=== PATIENT | male | born 1970 | race Caucasian/White ===

== ENCOUNTER 2022-06-14 23:28 | Emergency (ER) | payer SELFPAY ==
[2022-06-15 00:08] VITALS: BP 118/91; PULSE 92; RESP 18; BMI 30.1
--- NOTE | 2022-06-15 00:22 | ED_ITS ---
HPI - Male Genitourinary General Chief complaint: Urogenital-Male Stated complaint: Urinary problem Time Seen by Provider: 06/15/22 00:17 Source: patient Mode of arrival: ambulatory Limitations: no limitations History of Present Illness HPI Narrative: Patient comes to the emergency room complaining of severe suprapubic pain, states that he had a lot of Gatorade to drink earlier today and now he is unable to urinate. Patient states is that this happens. Prior to this, patient denies any URI UTI symptoms or abdominal pain. Patient states that the last time that he was able to urinate was approximately 4 hours ago, since then he has been drinking plenty of fluids. Related Data Previous Rx's Medication Instructions Recorded tamsulosin 0.4 mg capsule 0.4 mg PO DAILY #10 caps 06/15/22 Allergies Allergy/AdvReac Type Severity Reaction Status Date / Time sulfamethoxazole Allergy Unknown UNKNOWN Verified 06/15/22 00:07 [From BACTRIM] trimethoprim [From BACTRIM] Allergy Unknown UNKNOWN Verified 06/15/22 00:07 Review of Systems Review of Systems: Constitutional : No Weight loss, No Fever, No Chills, No Night Sweats, No Fatigue, No Malaise ENT/Mouth : No Hearing loss, No Ear Pain, No Nasal Congestion, No Sinus Pain, No Hoarseness, No sore throat, No Rhinorrhea, No Swallowing Difficulty Eyes: No Eye Pain, No Swelling, No Redness, No Foreign Body, No Discharge, No Vision Changes Cardiovascular : No Chest Pain, No SOB, No Dyspnea on Exertion, No Orthopnea, No Edema, No Palpitations Respiratory : No Cough, No Sputum, No Wheezing, No Smoke Exposure, No Dyspnea Gastrointestinal : No Nausea, No Vomiting, No Diarrhea, No Constipation, No abdominal Pain, No Hematochezia, No Melena Genitourinary : no irregular bleeding, No Dysuria, No Urinary Frequency, No Hematuria, Complaining of urinary retention, No Urgency, No Flank Pain, No Urinary Flow Changes, No Hesitancy Musculoskeletal : No joint pain, No Myalgias, No Joint Swelling Skin : No Skin Lesions, No rash Neuro : No Weakness, No Numbness, No Paresthesias, No Loss of Consciousness, No Dizziness, No Headache Psych : No Anxiety/Panic, No Depression, No SI/HI/AH/VH, No Social Issues, Heme/Lymph: No Bruising, No Bleeding,No Lymphadenopathy Endocrine : No Polyuria, No Polydipsia, No Temperature Intolerance [facility] Social History Social History Alcohol intake: never Smoked in Last 30 Days: No Use of substances other than those prescribed or required for medical reasons: No Advance Directives: No Physical Exam Vital Signs: Vital Signs: Last Vital Signs Pulse 81 06/15/22 00:59 Resp 16 06/15/22 00:59 BP 147/95 H 06/15/22 00:59 Pulse Ox 99 06/15/22 00:59 O2 Del Method 06/15/22 00:59 BMI result Body Mass Index 30.1 Const: Other: Appearance: Alert. Oriented X3. No acute distress. Eyes: Pupils equal, round and reactive to light. ENT: Pharynx normal. Neck: Normal inspection. Neck supple. No lymph nodes noted. No crepitus CVS: Normal heart rate and rhythm. Pulses normal. Normal S1 and S2 Respiratory: No respiratory distress. Breath sounds normal. No Wheezing. No rales Abdomen: Soft , suprapubic distention and pain to palpation. Bladder scan shows greater than 600 cc of urine Skin: Skin warm and dry. Normal skin color. Normal skin turgor. Extremities: No lower extremity edema. No Lacerations. No Rash Neuro: Oriented X 3. No motor deficit. No sensory deficit. Moving all extremities. No slurred speech. CN 2 through 12 grossly intact Psych: calm, cooperative, normal affect Course Course Course Narrative: -patient's bladder scan shows greater than 600 cc of urine. -patient agrees to a Lorenz catheter -urinalysis pending Medical Decision Making Medical Decision Making [facility] Narrative: -Lorenz catheter was inserted -urinalysis negative for UTI -patient concerned he has no insurance to follow up with Urology, patient instructed to return to the emergency room in 48 hours for Lorenz catheter removal. Differential Diagnosis Differential Diagnoses: The differential diagnosis associated with the presentation includes (Urinary retention, UTI, BPH) Lab Data MDM Lab Attestation statement: I reviewed the patient's lab results. Labs: Lab Results 06/15/22 06/15/22 Range/Units 01:00 01:00 Urine Color Yellow Urine Appearance Clear Urine pH 5.5 (5.0-9.0) Ur Specific [place] <= 1.005 (1.005-1.025) Urine Protein Trace (Neg-Trace) mg/dL Urine Glucose (UA) Negative (Negative) mg/dL Urine Ketones Negative (Negative) mg/dL Urine Blood Large (3+) H (Negative) Urine Nitrite Negative (Negative) Ur Leukocyte Esterase Negative (Negative) Urine RBC 11-20 H (0-2) /HPF Urine WBC 0-5 (0-5) /HPF Ur Squamous Epith Cells 0-2 (0-2) /HPF Urine Bacteria None Seen (None Seen) Hyaline Casts 0-2 (0-2) /LPF Urine Opiates Screen Not Detected (Not Detect) Urine Fentanyl Screen Not Detected (Not Detect) Ur Barbiturates Screen Not Detected (Not Detect) Ur Phencyclidine Scrn Not Detected (Not Detect) Ur Amphetamines Screen Not Detected (Not Detect) U Benzodiazepines Scrn Not Detected (Not Detect) Urine Cocaine Screen Not Detected (Not Detect) U Marijuana (THC) Screen POSITIVE H (Not Detect) Discharge Plan Discharge Clinical Impression: Acute retention of urine Patient Disposition: Home, Self-Care Instructions: Urinary Retention in Men (ED), Lorenz Catheter Placement and Care (ED) Additional Instructions: Please return in 48 hours to have the Lorenz catheter removed. Please follow-up with your primary care physician tomorrow. If you have any worsening or new s ymptoms, please return to the emergency room or call 911 Prescriptions: New tamsulosin 0.4 mg capsule 0.4 mg PO DAILY Qty: 10 0RF
[2022-06-15 00:59] VITALS: BP 147/95; PULSE 81; RESP 16; O2SAT 99
[2022-06-15 01:06] LABS: Appearance Urine Clear; Color Urine Yellow; Glucose Urine UA Negative (Negative); Leukocyte Esterase Urine Negative (Negative); Nitrite Urine Negative (Negative); PH 5.5 (5.0-9.0); Specific Gravity - Urine <= 1.005 (1.005-1.025); UMIC TRIGGER UACC YES; Urine Blood Large (3+) (Negative); Urine Ketones Negative (Negative); Urine Protein Trace mg/dL (Neg-Trace)
[2022-06-15 01:09] LABS: Bacteria Urine None Seen (None Seen); Hyaline Casts Urine 0-2 /LPF (0-2); Squamous Epithelial Cell Urine 0-2 /HPF (0-2); WBC Urine 0-5 /HPF (0-5)
[2022-06-15 01:17] LABS: Amphetamine Screen Urine Not Detected (Not Detect); Barbiturates, Urine Not Detected (Not Detect); Benzodiazepines Screen Urine Not Detected (Not Detect); Cannabinoid Screen Urine POSITIVE (Not Detect); Cocaine Screen Urine Not Detected (Not Detect); Fentanyl, urine Not Detected (Not Detect); Opiate Screen Urine Not Detected (Not Detect); Phencyclidine Screen Urine Not Detected (Not Detect)
--- NOTE | 2022-06-15 01:51 | PC.NURSE ---
Lorenz catheter inserted with 600mL initial output. Pt reported major relief after insertion. Pt was attached to a leg bag prior to discharge and educated on Lorenz care. Pt was discharged with no questions or comments. Pt had steady gait, A&Ox4, GCS 15.
== END 2022-06-15 01:45 | disposition home or self-care (01) ==
PROVIDERS: Emergency Provider Emergency Medicine
DX: R33.9 Retention of urine, unspecified (principal); F12.90 Cannabis use, unspecified, uncomplicated
CPT/HCPCS: 51702; 80307; 81001; 99284; 99285

== ENCOUNTER 2022-06-17 00:54 | Emergency (ER) | payer SELFPAY ==
[2022-06-17 01:17] VITALS: BP 167/96; PULSE 68; RESP 18; TEMP 36.6; O2SAT 95; BMI 30.1
--- NOTE | 2022-06-17 05:50 | ED_ITS ---
HPI - Male Genitourinary General Chief complaint: Urogenital-Male Stated complaint: FARR CATH REMOVED Time Seen by Provider: 06/17/22 05:30 Source: patient Mode of arrival: ambulatory Limitations: no limitations History of Present Illness HPI Narrative: 52-year-old male presents with request have Farr catheter removed. He was seen on June 15. He had an acute obstruction. Since then he has had some small a mount of clots which have dissipated. He has had no significant pain or discomfort. No fevers or chills. He still has some pinkish urine discoloration. Related Data Previous Rx's Medication Instructions Recorded tamsulosin 0.4 mg capsule 0.4 mg PO DAILY #10 caps 06/15/22 Allergies Allergy/AdvReac Type Severity Reaction Status Date / Time No Known Allergies Allergy Verified 06/17/22 05:50 [facility] Social History Social History Alcohol intake: never Advance Directives: No Advance Directives Information Provided: Yes Physical Exam Vital Signs: Vital Signs: Last Vital Signs Temp 97.8 F 06/17/22 01:17 Pulse 68 06/17/22 01:17 Resp 18 06/17/22 01:17 BP 167/96 H 06/17/22 01:17 Pulse Ox 95 06/17/22 01:17 O2 Del Method Room Air 06/17/22 01:17 BMI result Body Mass Index 30.1 GEN: Well developed, no acute distress, alert, oriented HEENT: Normocephalic, atraumatic, normal external ears, nose appears normal Eyes: Normal to appearance Neck: Supple, no lymphadenopathy Respiratory: Talks in complete sentences, no respiratory distress Extremities: No clubbing cyanosis or edema Neurologic: No focal neurologic deficits, cranial nerves 2-12 intact, gait normal Skin: No rash : Farr catheter in place Course Course Course Narrative: 52-year-old male presents for Farr catheter removal. Currently on Flomax. Denies any infectious symptoms. Remove the Farr catheter. He is aware of reasons to return to the emergency department such as fever, chills, inability urinate, abdominal pain. Aware he should drink plenty of fluids to make sure his fleshy urine of his bladder appropriately. He will continue Flomax. Medical Decision Making Medical Decision Making [facility] Narrative: Patient is here for Farr catheter removal. Reviewed all lab tests from previous visit. Differential Diagnosis Differential Diagnoses: The differential diagnosis associated with the presenta tion includes (Farr catheter removal) External Record Review External record reviewed: Prior outpatient labs Prescription Management I considered prescription management with: Antibiotic Discharge Plan Discharge Clinical Impression: Encounter for Farr catheter removal Patient Disposition: Home, Self-Care Instructions: Farr Catheter Removal (DC) Additional Instructions: Return to the emergency department if you develop any obstructive symptoms, difficulty urinating, abdominal pain, fevers, chills, etc.. Otherwise, drink plenty of fluids. Continue Flomax 0.4 mg daily until your prescription is compl eted. Prescriptions: No Action tamsulosin 0.4 mg capsule 0.4 mg PO DAILY Qty: 10 0RF Referrals: Sumit Ernst MD [Physician] - 5 days
== END 2022-06-17 06:25 | disposition home or self-care (01) ==
PROVIDERS: Emergency Provider Emergency Medicine
DX: Z46.6 Encounter for fitting and adjustment of urinary device (principal)
CPT/HCPCS: 99282; 99283

== ENCOUNTER 2022-07-13 20:52 | Emergency (ER) | payer SELFPAY ==
[2022-07-13 21:02] VITALS: BP 149/104; PULSE 89; RESP 14; TEMP 37.2; BMI 30.1
[2022-07-13 21:26] LABS: Appearance Urine Clear; Color Urine Yellow; Glucose Urine UA Negative (Negative); Leukocyte Esterase Urine Negative (Negative); Nitrite Urine Negative (Negative); PH 5.5 (5.0-9.0); Specific Gravity - Urine <= 1.005 (1.005-1.025); UMIC TRIGGER UACC YES; Urine Blood Moderate (2+) (Negative); Urine Ketones Negative (Negative); Urine Protein Negative (Neg-Trace)
[2022-07-13 21:31] LABS: Bacteria Urine None Seen (None Seen); Hyaline Casts Urine 0-2 /LPF (0-2); RBC Urine 0-2 /HPF (0-2); Squamous Epithelial Cell Urine 0-2 /HPF (0-2); WBC Urine 0-5 /HPF (0-5)
--- NOTE | 2022-07-13 21:50 | ED_ITS ---
HPI - Male Genitourinary General Chief complaint: Urogenital-Male Stated complaint: unable too urinated Time Seen by Provider: 07/13/22 21:26 Source: patient Mode of arrival: ambulatory Limitations: no limitations History of Present Illness HPI Narrative: Patient comes to the emergency room complaining of urinary retention. The last time that the patient was able to urinate was approximately 5 hours ago. Approx imately 1 month ago, patient had similar symptoms, patient need a Lorenz catheter, 2 days later was removed and patient was doing well until today. Patient denies UTI symptoms prior to the last 5 hours. Patient is for chills, no flank pain. Related Data Previous Rx's Medication Instructions Recorded tamsulosin 0.4 mg capsule 0.4 mg PO DAILY #10 caps 06/15/22 tamsulosin 0.4 mg capsule 0.4 mg PO BEDTIME #90 caps 07/13/22 Allergies Allergy/AdvReac Type Severity Reaction Status Date / Time No Known Allergies Allergy Verified 06/17/22 05:50 Review of Systems Review of Systems: Constitutional : No Weight loss, No Fever, No Chills, No Night Sweats, No Fatigue, No Malaise ENT/Mouth : No Hearing loss, No Ear Pain, No Nasal Congestion, No Sinus Pain, No Hoarseness, No sore throat, No Rhinorrhea, No Swallowing Difficulty Eyes: No Eye Pain, No Swelling, No Redness, No Foreign Body, No Discharge, No Vision Changes Cardiovascular : No Chest Pain, No SOB, No Dyspnea on Exertion, No Orthopnea, No Edema, No Palpitations Respiratory : No Cough, No Sputum, No Wheezing, No Smoke Exposure, No Dyspnea Gastrointestinal : No Nausea, No Vomiting, No Diarrhea, No Constipation, No abdominal Pain, No Hematochezia, No Melena Genitourinary : no irregular bleeding, No Dysuria, No Urinary Frequency, No Hematuria, No Urinary Incontinence, No Urgency, No Flank Pain, No Urinary Flow Changes, No Hesitancy Musculoskeletal : No joint pain, No Myalgias, No Joint Swelling Skin : No Skin Lesions, No rash Neuro : No Weakness, No Numbness, No Paresthesias, No Loss of Consciousness, No Dizziness, No Headache Psych : No Anxiety/Panic, No Depression, No SI/HI/AH/VH, No Social Issues, Heme/Lymph: No Bruising, No Bleeding,No Lymphadenopathy Endocrine : No Polyuria, No Polydipsia, No Temperature Intolerance [facility] Social History Social History Alcohol intake: never Advance Directives: No Advance Directives Information Provided: Yes Physical Exam Vital Signs: Vital Signs: Last Vital Signs Temp 98.2 F 07/13/22 23:21 Pulse 65 07/13/22 23:21 Resp 16 07/13/22 23:21 BP 129/81 07/13/22 23:21 Pulse Ox 98 07/13/22 23:21 O2 Del Method Room Air 07/13/22 23:21 BMI result Body Mass Index 30.1 Const: Other: Appearance: Alert. Oriented X3. Seems very uncomfortable Eyes: Pupils equal, round and reactive to light. ENT: Pharynx normal. Neck: Normal inspection. Neck supple. No lymph nodes noted. No crepitus CVS: Normal heart rate and rhythm. Pulses normal. Normal S1 and S2 Respiratory: No respiratory distress. Breath sounds normal. No Wheezing. No rales Abdomen: Soft very uncomfortable to palpation in the suprapubic area, distended Skin: Skin warm and dry. Normal skin color. Normal skin turgor. Extremities: No lower extremity edema. No Lacerations. No Rash Neuro: Oriented X 3. No motor deficit. No sensory deficit. Moving all extremities. No slurred speech. CN 2 through 12 grossly intact Psych: calm, cooperative, normal affect Medications Administered Discontinued Medications Generic Name Dose Route Start Last Admin Trade Name Freq PRN Reason Stop Dose Admin Tamsulosin HCl 0.4 mg 07/13/22 21:38 07/13/22 22:56 Tamsulosin Hcl 0.4 Mg Capsule PO 07/13/22 21:39 0.4 mg ONCE ONE Administration Medical Decision Making Medical Decision Making [facility] Narrative: -patient had over 900 cc of urine -Lorenz catheter inserted, patient feeling much better, urinalysis clean, blood secondary to Lorenz catheter insertion -patient states that tamsulosin was helping him. Patient ran out of tamsulosin, started taking medications from his friend (tamsulosin). Patient stop taking it 3 days ago and then developed urinary retention. -patient is not known to use any narcotics Differential Diagnosis Differential Diagnoses: The differential diagnosis associated with the presentation includes (Urinary retention, BPH, UA, narcotic usage) Lab Data 07/13/22 21:49 07/13/22 21:49 Labs: Lab Results 07/13/22 07/13/22 07/13/22 Range/Units 21:13 21:49 21:49 WBC 8.4 (4.8-10.8) X10*3/uL RBC 4.97 (4.60-5.80) X10*6/uL Hgb 14.1 (14.0-18.0) g/dl Hct 40.8 L (42.0-52.0) % MCV 82.1 (80.0-98.0) fL MCH 28.4 (27.0-33.0) pg MCHC 34.6 (31.0-36.0) g/dl RDW 14.3 (11.0-16.0) % Plt Count 262 (160-400) X10*3/uL MPV 9.9 (9.4-12.4) fL Absolute Nucleated RBC 0.000 (0.0-0.012) X10*3/uL Nucleated RBC % (auto) 0.0 (0.0-0.2) /100WBC Sodium 142 (135-145) mmol/L Potassium 3.7 (3.3-5.1) mmol/L Chloride 109 H (96-108) mmol/L Carbon Dioxide 21 L (22-29) mmol/L Anion Gap 16 (12-20) BUN 15 (9-16) mg/dL Creatinine 0.99 (0.5-1.4) mg/dL Estim Creat Clear Calc 99.9 Estimated GFR > 60 Random Glucose 102 (60-115) mg/dL Calcium 9.3 (8.4-10.2) mg/dL Total Bilirubin 0.4 (0.0-1.0) mg/dL AST 30 (5-37) U/L ALT 39 (0-40) U/L Alkaline Phosphatase 76 (39-117) U/L Total Protein 7.1 (6.5-8.0) g/dL Albumin 4.6 (3.5-5.0) g/dL Lipase 20 (8-78) U/L Urine Color Yellow Urine Appearance Clear Urine pH 5.5 (5.0-9.0) Ur Specific [place] <= 1.005 (1.005-1.025) Urine Protein Negative (Neg-Trace) mg/dL Urine Glucose (UA) Negative (Negative) mg/dL Urine Ketones Negative (Negative) mg/dL Urine Blood Moderate (2+) H (Negative) Urine Nitrite Negative (Negative) Ur Leukocyte Esterase Negative (Negative) Urine RBC 0-2 (0-2) /HPF Urine WBC 0-5 (0-5) /HPF Ur Squamous Epith Cells 0-2 (0-2) /HPF Urine Bacteria None Seen (None Seen) Hyaline Casts 0-2 (0-2) /LPF Discharge Plan Discharge Clinical Impression: Acute urinary retention Patient Disposition: Home, Self-Care Instructions: Urinary Retention in Men (ED), Enlarged Prostate (BPH) (ED) Additional Instructions: Please follow-up with your primary care physician tomorrow. If you have any wor sening or new symptoms, please return to the emergency room or call 911 Prescriptions: New tamsulosin 0.4 mg capsule 0.4 mg PO BEDTIME Qty: 90 0RF No Action tamsulosin 0.4 mg capsule 0.4 mg PO DAILY Qty: 10 0RF
[2022-07-13 21:54] LABS: Hematocrit 40.8 % (42.0-52.0); Hemoglobin 14.1 g/dl (14.0-18.0); Mean Corpuscular HGB Conc 34.6 g/dl (31.0-36.0); Mean Corpuscular Hemoglobin 28.4 pg (27.0-33.0); Mean Corpuscular Volume 82.1 fL (80.0-98.0); Mean Platelet Volume 9.9 fL (9.4-12.4); Platelet Count 262 X10*3/uL (160-400); Red Blood Count 4.97 X10*6/uL (4.60-5.80); Red Cell Distribution Width 14.3 % (11.0-16.0); White Blood Count 8.4 X10*3/uL (4.8-10.8)
[2022-07-13 22:08] LABS: Alanine Aminotransferase 39 U/L (0-40); Albumin Level 4.6 g/dL (3.5-5.0); Alkaline Phosphatase 76 U/L (39-117); Anion Gap 16 (12-20); Aspartate Amino Transferase 30 U/L (5-37); Bilirubin Total 0.4 mg/dL (0.0-1.0); Blood Urea Nitrogen 15 mg/dL (9-16); Calcium 9.3 mg/dL (8.4-10.2); Carbon Dioxide 21 mmol/L (22-29); Chloride 109 mmol/L (96-108); Creatinine Clr Calc Pharmacy 99.9; Estimated Glomerular Filt Rate > 60; Glucose Random 102 mg/dL (60-115); Lipase 20 U/L (8-78); Potassium 3.7 mmol/L (3.3-5.1); Sodium 142 mmol/L (135-145); Total Protein 7.1 g/dL (6.5-8.0)
[2022-07-13] MEDS: Tamsulosin HCL 0.4 MG CAPSULE PO (22:56)
--- NOTE | 2022-07-13 23:00 | PC.NURSE ---
pt reperts great relief of pain and abdominal discomfort. pt bladder scanned for urine 754cc in bladder. 18Fr langston catheter placed and pt drained 1000cc urine. reports feeling much better. flomax po administered
[2022-07-13 23:21] VITALS: BP 129/81; PULSE 65; RESP 16; TEMP 36.8; O2SAT 98
== END 2022-07-13 23:46 | disposition home or self-care (01) ==
PROVIDERS: Emergency Provider Emergency Medicine
DX: R33.9 Retention of urine, unspecified (principal); N40.0 Benign prostatic hyperplasia without lower urinary tract symptoms
CPT/HCPCS: 36415; 51798; 80053; 81001; 83690; 85027; 99283; 99284

== ENCOUNTER 2022-07-15 19:47 | Emergency (ER) | payer SELFPAY ==
[2022-07-15 19:50] VITALS: BP 143/99; PULSE 70; RESP 18; TEMP 36.1; O2SAT 96; BMI 30.1
--- NOTE | 2022-07-15 19:54 | ED.GENADULT ---
HPI - General Adult General Chief complaint: Urogenital-Male <Evaristo Valdez - Last Filed: 07/15/22 19:56> Stated complaint: Fully needs to be irrigated, possible clot? <Evaritso Valdez - Last Filed: 07/15/22 19:56> Time Seen by Provider: 07/15/22 20:58 <Evaristo Valdez - Last Filed: 07/15/22 19:56> Source: patient <Leonela Akbar MD - Last Filed: 07/15/22 22:12> Mode of arrival: ambulatory <Leonela Akbar MD - Last Filed: 07/15/22 22:12> Limitations: no limitations <Leonela Akbar MD - Last Filed: 07/15/22 22:12> History of Present Illness HPI narrative: Patient comes to the emergency room for a Lorenz catheter removal. Patient was seen 48 hours ago, patient had acute urinary retention likely secondary to BPH. Patient has no complaints today. Initially, patient thought that his Lorenz catheter was not draining. However, patient only has less than 50 cc of urine in his bladder for bedside bladder scan. Patient has no abdominal pain. <Leonela Akbar MD - Last Filed: 07/15/22 22:12> Related Data Home medications: Previous Rx's Medication Instructions Recorded tamsulosin 0.4 mg capsule 0.4 mg PO DAILY #10 caps 06/15/22 tamsulosin 0.4 mg capsule 0.4 mg PO BEDTIME #90 caps 07/13/22 <Evaristo Valdez - Last Filed: 07/15/22 19:56> Allergies/adverse reactions: Allergies Allergy/AdvReac Type Severity Reaction Status Date / Time No Known Allergies Allergy Verified 07/15/22 19:50 <Evaristo Valdez - Last Filed: 07/15/22 19:56> Review of Systems Review of Systems: Constitutional : No Weight loss, No Fever, No Chills, No Night Sweats, No Fatigue, No Malaise ENT/Mouth : No Hearing loss, No Ear Pain, No Nasal Congestion, No Sinus Pain, No Hoarseness, No sore throat, No Rhinorrhea, No Swallowing Difficulty Eyes: No Eye Pain, No Swelling, No Redness, No Foreign Body, No Discharge, No Vision Changes Cardiovascular : No Chest Pain, No SOB, No Dyspnea on Exertion, No Orthopnea, No Edema, No Palpitations Respiratory : No Cough, No Sputum, No Wheezing, No Smoke Exposure, No Dyspnea Gastrointestinal : No Nausea, No Vomiting, No Diarrhea, No Constipation, No abdominal Pain, No Hematochezia, No Melena Genitourinary : Lorenz catheter draining properly. No Dysuria, No Urinary Frequency, No Hematuria, No Urinary Incontinence, No Urgency, No Flank Pain, No Urinary Flow Changes, No Hesitancy Musculoskeletal : No joint pain, No Myalgias, No Joint Swelling Skin : No Skin Lesions, No rash Neuro : No Weakness, No Numbness, No Paresthesias, No Loss of Consciousness, No Dizziness, No Headache Psych : No Anxiety/Panic, No Depression, No SI/HI/AH/VH, No Social Issues, Heme/Lymph: No Bruising, No Bleeding,No Lymphadenopathy Endocrine : No Polyuria, No Polydipsia, No Temperature Intolerance <Leonela Akbar MD - Last Filed: 07/15/22 22:12> [facility] Past Medical History Medical History: Medical History (Updated 07/15/22 @ 22:12 by Leonela Akbar MD) BPH (benign prostatic hyperplasia) <Evaristo Valdez - Last Filed: 07/15/22 19:56> Social History Social History: Social History Alcohol intake: current Alcohol intake frequency: holidays/special occasions only Smoked in Last 30 Days: No Use of substances other than those prescribed or required for medical reasons: No Advance Directives: No Advance Directives Information Provided: No <Evaristo Valdez - Last Filed: 07/15/22 19:56> Physical Exam ED Vital Signs: Vital Signs - 24 hr 07/15/22 19:50 07/15/22 21:29 Temperature 97.0 F Pulse Rate 70 81 Respiratory Rate 18 15 Blood Pressure 143/99 H 130/73 Pulse Oximetry 96 99 Oxygen Delivery Method Room Air Room Air BMI result Body Mass Index 30.1 <Evaristo Valdez - Last Filed: 07/15/22 19:56> Vital Signs - 24 hr 07/15/22 19:50 07/15/22 21:29 Temperature 97.0 F Pulse Rate 70 81 Respiratory Rate 18 15 Blood Pressure 143/99 H 130/73 Pulse Oximetry 96 99 Oxygen Delivery Method Room Air Room Air BMI result Body Mass Index 30.1 <Leonela Akbar MD - Last Filed: 07/15/22 22:12> Const Other: Appearance: Alert. Oriented X3. No acute distress. Eyes: Pupils equal, round and reactive to light. ENT: Pharynx normal. Neck: Normal inspection. Neck supple. No lymph nodes noted. No crepitus CVS: Normal heart rate and rhythm. Pulses normal. Normal S1 and S2 Respiratory: No respiratory distress. Breath sounds normal. No Wheezing. No rales Abdomen: Soft and nontender. No rigidity. No distention. Skin: Skin warm and dry. Normal skin color. Normal skin turgor. Extremities: No lower extremity edema. No Lacerations. No Rash Neuro: Oriented X 3. No motor deficit. No sensory deficit. Moving all extremities. No slurred speech. CN 2 through 12 grossly intact Psych: calm, cooperative, normal affect <Leonela Akbar MD - Last Filed: 07/15/22 22:12> Course Course Course Narrative: 52 year old mal presents for evaluation of ?my Lorenz catheter is not draining. ? Patient reports he has had a recent history with urinary retention. About 1 month ago he had a Lorenz catheter placed and removed 3 days later in the ER. He states that he was here 2 days ago to have a Lorenz catheter placed and drained over 750 cc urine. He reports over the last few hours he has had no further drainage in his catheter bag and believes he has a blood clot in the catheter. The plan for bladder scan and then irrigation versus pulling the Lorenz <Evaristo Valdez - Last Filed: 07/15/22 19:56> Medical Decision Making Medical Decision Making [facility] Narrative: -Lorenz catheter was removed, patient was able to successfully void without any difficulty. <Leonela Akbar MD - Last Filed: 07/15/22 22:12> Discharge Plan Discharge Clinical Impression: Encounter for Lorenz catheter removal <Evaristo Valdez - Last Filed: 07/15/22 19:56> Patient Disposition: Home, Self-Care <Evaristo Valdez - Last Filed: 07/15/22 19:56> Instructions: Lorenz Catheter Removal (DC) <Evaristo Valdez - Last Filed: 07/15/22 19:56> Additional Instructions: Please follow-up with your primary care physician tomorrow. If you have any worsening or new symptoms, please return to the emergency room or call 911 <Evaristo Valdez - Last Filed: 07/15/22 19:56> Prescriptions: No Action tamsulosin 0.4 mg capsule 0.4 mg PO DAILY Qty: 10 0RF tamsulosin 0.4 mg capsule 0.4 mg PO BEDTIME Qty: 90 0RF <Evaristo Valdez - Last Filed: 07/15/22 19:56>
--- NOTE | 2022-07-15 21:28 | PC.NURSE ---
bladder scanned pt, total 57 ml in bladder. drained approximately 350 ml from leg bag. Dr. Akbar requested this RN remove catheter, cath removed. Pt provied with water and encouraged to use urinal when needing to urinate
[2022-07-15 21:29] VITALS: BP 130/73; PULSE 81; RESP 15; O2SAT 99
--- NOTE | 2022-07-15 21:33 | PC.NURSE ---
pt tolerated langston removal very well, pt offers no complaints
--- NOTE | 2022-07-15 22:06 | PC.NURSE ---
patient voided approximately 70mls of clear light yellow urine without difficulty
== END 2022-07-15 22:22 | disposition home or self-care (01) ==
PROVIDERS: Emergency Provider Emergency Medicine
DX: Z46.6 Encounter for fitting and adjustment of urinary device (principal)
CPT/HCPCS: 51798; 99283; 99284

== ENCOUNTER 2023-03-18 10:14 | Emergency (ER) | payer SELFPAY ==
[2023-03-18 10:16] VITALS: BP 153/113; PULSE 98; RESP 18; TEMP 36.4; O2SAT 94; BMI 27.6
--- NOTE | 2023-03-18 11:26 | ED_ITS ---
HPI - Male Genitourinary General Chief complaint: Urogenital-Male Stated complaint: Catheter removal Time Seen by Provider: 03/18/23 10:40 Source: patient Mode of arrival: ambulatory Limitations: no limitations History of Present Illness HPI Narrative: 53 year old male with pmhx significant for BPH presents to the ED today requesting langston catheter removal. Admits to being evaluated at [facility] ED 3 days ago for acute urinary retention secondary to BPH. Had langston catheter placed at that time and was advised to return to the ED for langston removal in 2-3 days. He does not have follow up scheduled with PCP or urologist. States that he is currently trying to establish care as he does not have insurance at the moment. Langston has been draining consistently. Reports straw colored urine. No blood or clots. Denies fever, chills, abdominal pain, dysuria, hematuria. Patient states he used to take flomax however ran out of this. Requesting refill. Related Data Previous Rx's Medication Instructions Recorded tamsulosin 0.4 mg capsule 0.4 mg PO DAILY #10 caps 06/15/22 tamsulosin 0.4 mg capsule 0.4 mg PO BEDTIME #90 caps 07/13/22 lisinopril 5 mg tablet 5 mg PO DAILY #30 tabs 03/18/23 tamsulosin 0.4 mg capsule 0.4 mg PO BEDTIME #30 caps 03/18/23 Allergies Allergy/AdvReac Type Severity Reaction Status Date / Time No Known Allergies Allergy Verified 07/15/22 19:50 Review of Systems Review of Systems: Constitutional: No fever, chills, fatigue, night sweats, weight changes ENT/Mouth: No ear pain, hearing loss, nasal congestion, sinus pain, rhinorrhea, sore throat Eyes: No eye pain, swelling, redness, vision changes, discharge Cardio: No chest pain, palpitations, JAVIER, orthopnea, peripheral edema Pulm: No SOB, cough, sputum, wheezing, dyspnea, hemoptysis GI: No nausea, vomiting, hematemesis, abdominal pain, diarrhea, constipation, hematochezia, melena : No irregular bleeding, dysuria, frequency, urgency, hesitancy, hematuria, flank pain, urinary flow changes, urinary incontinence or retention MSK: No back pain, neck pain, joint pain, myalgias Skin: No lesions, rashes Neuro: No weakness, numbness, paresthesias, LOC, dizziness, headache Psych: No anxiety/panic, depression, SI/HI, AH/VH All other systems reviewed and are negative. [facility] Past Medical History Attestation statement: The following information was validated with the patient. Source: old records reviewed and nursing notes reviewed Medical History BPH (benign prostatic hyperplasia) Social History Social History Alcohol intake: current Alcohol intake frequency: holidays/special occasions only Advance Directives: No Advance Directives Information Provided: Yes Physical Exam Vital Signs: Vital Signs: Last Vital Signs Temp 97.6 F 03/18/23 10:16 Pulse 74 03/18/23 14:47 Resp 16 03/18/23 14:47 BP 151/104 H 03/18/23 14:47 Pulse Ox 98 03/18/23 14:47 O2 Del Method Room Air 03/18/23 14:47 BMI result Body Mass Index 27.6 Vital signs notable for hypertension Const: General: cooperative, healthy appearing, comfortable, no acute distress, alert and awake Orientation/consciousness: patient oriented x3 Limitations: no limitations Eyes: General: appearance normal, both eyes and all related structures Conjunctivae: conjunctivae normal Sclerae: sclerae normal Resp: Effort & Inspection: normal respiratory effort Auscultation: clear to auscultation bilaterally Cardio: Rate: regular rate Rhythm: regular rhythm GI: Other: + abdomen soft, nondistended, nontender to palpation, no rebound or guarding. normoactive bs x4. bladder not palpable. Inspection: Yes normal to inspection : Other: + langston catheter in place. no leakage. n o erythema around the glans penis. langston bag with straw colored urine. draining with ease. no syed blood or blood clots. General: Yes no CVA tenderness Back/Spine/Pelvis: Back: no CVA tenderness Skin: General skin exam: no rashes or lesions noted Neuro: General: patient oriented x3, gait normal and moves all extremities Course Course Course Narrative: 8932-- Bladder scan showing 2ml pre-catheter removal. Langston catheter removed by BETO Loyd. No complications. Patient urinating normally in ED. Denies dysuria or hematuria. No abdominal pain. UA showing large amount of blood/ RBC likely traumatic from langston insertion/ removal. No evidence of urinary tract infection. >> will send one month prescription for flomax as patient has run out and does not currently have a PCP. Will provide patient with PCP and urology referrals. >> additionally, patient is noted to be hypertensive in the ED. currently denies dizziness, BELL, vision changes, cp. when compared to previous vitals this appears to be patient's baseline. He reports noncompliance with prior BP meds d/t insurance. Will send lisinopril 5 mg to patient's pharmacy and supply him with good Rx cards to help with cost. >> Discussed worrisome signs and symptoms and when to return to the emergency department. Patient has remained stable throughout ED visit today. All questions answered at this time. Patient is agreeable with disposition and stable for discharge. Medical Decision Making Medical Decision Making [facility] Narrative: 53 year old male with pmhx significant for BPH presents to the ED today requesting langston catheter removal. VSS. Nontoxic appearing and in NAD. On exam, langston catheter in place. no leakage. no erythema around the glans penis. langston bag with straw colored urine. draining with ease. no syed blood or blood clots. Clinical concern for BPH, urinary retention, langston catheter, UTI. Plan for bladder scan, UA, and langston removal. Differential Diagnosis Differential Diagnoses: The differential diagnosis associated with the presentation includes as above. Admission/Observation Not indicated Lab Data [facility] Lab Attestation statement: I reviewed the patient's lab results. As above. Labs: Lab Results 03/18/23 Range/Units 14:11 Urine Color Dark Yellow Urine Appearance Cloudy Urine pH 5.5 (5.0-9.0) Ur Specific Zearing 1.025 (1.005-1.025) Urine Protein 100 (2+) H (Neg-Trace) mg/dL Urine Glucose (UA) Negative (Negative) mg/dL Urine Ketones Trace (Negative) mg/dL Urine Blood Large (3+) H (Negative) Urine Nitrite Negative (Negative) Ur Leukocyte Esterase Trace H (Negative) Urine RBC >20 H (0-2) /HPF Urine WBC 0-5 (0-5) /HPF Ur Squamous Epith Cells 0-2 (0-2) /HPF Urine Bacteria None Seen (None Seen) Hyaline Casts 3-5 (0-2) /LPF External Record Review External record reviewed: Inpatient record Prescription Management I considered prescription management with: Other (aplha 1 mark) Chronic Conditions Patient?s care impacted by: Other (BPH) Social Determinants Patient?s care significantly limited by Social Determinants of Health including: Other Social Determinant of Health Critical Care Time Critical Care Time Critical Care Time: No Discharge Plan Discharge Clinical Impression: Encounter for removal of urinary catheter, Hypertension Patient Disposition: Home, Self-Care Instructions: DASH Eating Plan (ED), Langston Catheter Removal (DC) Additional Instructions: Your Langston catheter was removed today. Your urine does not show infection. You have been provided with a one month prescription for Flomax. Take this at night as it can affect your blood pressure. Change positions slowly so your blood pressure can normalize. You have been provided with a referral to a urologist. CALL THEM TO MAKE AN APPOINTMENT. THEY WILL NOT CALL YOU. Follow up with your primary care provider. If you do not have one, a referral has been provided to you. CALL THEM TO MAKE AN APPOINTMENT. THEY WILL NOT CALL YOU. If your symptoms persist or worsen, you are unable to urinate or you spike a fever, please return to the emergency department. The case of an emergency call 911. You were also noted to have high blood pressure in ED. Lisinopril is an antihypertensive that you take daily for your high blood pressure. In additation, exercise and healthy diet can help to decrease blood pressure. Please follow-up with primary care provider regarding further prescription. If you develop facial swelling, lip swelling, headache, dizziness or rash please return to the emergency department. The case of an emergency call 911. Prescriptions: New tamsulosin 0.4 mg capsule 0.4 mg PO BEDTIME Qty: 30 0RF lisinopril 5 mg tablet 5 mg PO DAILY Qty: 30 0RF No Action tamsulosin 0.4 mg capsule 0.4 mg PO DAILY Qty: 10 0RF tamsulosin 0.4 mg capsule 0.4 mg PO BEDTIME Qty: 90 0RF Referrals: [facility] [Provider Group] Discharge Date/Time: 03/18/23 15:06
[2023-03-18 14:19] LABS: Appearance Urine Cloudy; Color Urine Dark Yellow; Glucose Urine UA Negative (Negative); Leukocyte Esterase Urine Trace (Negative); Nitrite Urine Negative (Negative); PH 5.5 (5.0-9.0); Specific Gravity - Urine 1.025 (1.005-1.025); UMIC TRIGGER UACC YES; Urine Blood Large (3+) (Negative); Urine Ketones Trace mg/dL (Negative); Urine Protein 100 (2+) mg/dL (Neg-Trace)
[2023-03-18 14:47] VITALS: BP 151/104; PULSE 74; RESP 16; O2SAT 98
[2023-03-18 14:50] LABS: Bacteria Urine None Seen (None Seen); RBC Urine >20 /HPF (0-2); Squamous Epithelial Cell Urine 0-2 /HPF (0-2); WBC Urine 0-5 /HPF (0-5)
== END 2023-03-18 15:06 | disposition home or self-care (01) ==
PROVIDERS: Physician Assistant Medical; Emergency Provider Student in an Organized Health Care Education/Training Program
DX: Z46.6 Encounter for fitting and adjustment of urinary device (principal); I10 Essential (primary) hypertension; N40.0 Benign prostatic hyperplasia without lower urinary tract symptoms
CPT/HCPCS: 51798; 81001; 99283; 99284